=== PATIENT | male | born 1960 | race Hispanic/Latino ===

== ENCOUNTER → 2019-06-30 | Outpatient (CLI) | payer OTHER ==
[~2019-06-30] MED LIST: ASPI-1012 PO; CLOP75TA14 PO; SIMV20TA2 PO
== END | disposition home or self-care (01) ==
LOC: RAH 13:09
PROVIDERS: ATTEND Psychiatry & Neurology Neurology
DX: I63.50 Cerebral infarction due to unspecified occlusion or stenosis of unspecified cerebral artery (principal)
CPT/HCPCS: 70450

== ENCOUNTER → 2019-11-18 | Outpatient (CLI) | payer MEDICARE | END | disposition home or self-care (01) | LOC: RAH 12:25 | PROVIDERS: ATTEND Psychiatry & Neurology Neurology | DX: I25.10 Atherosclerotic heart disease of native coronary artery without angina pectoris (principal); M54.16 Radiculopathy, lumbar region; M25.78 Osteophyte, vertebrae | CPT/HCPCS: 72131 ==

== ENCOUNTER → 2020-11-07 | Outpatient (CLI) | payer OTHER ==
[~2020-11-07] VITALS: Ht 170.2 cm; Wt 96.6 kg
[~2020-11-07] MED LIST changes: +REGADENOSON 0.4 MG/5 ML PF SYG IVP SCH
== END | disposition home or self-care (01) ==
LOC: SHCH 08:12
PROVIDERS: ATTEND Internal Medicine Cardiovascular Disease
DX: R06.09 Other forms of dyspnea (principal); R00.1 Bradycardia, unspecified
CPT/HCPCS: 78452; 93017; 96374; A9500 ×2; J2785

== ENCOUNTER 2021-04-09 05:48 | Day surgery (SDC) | payer OTHER ==
[2021-04-04 10:46] LABS: BASOPHILS % (AUTO) 0.4 % (0.0-5.0); EOSINOPHILS % (AUTO) 2.8 % (0.0-8.0); HEMATOCRIT 52.6 % (42-54); LYMPHOCYTES % (AUTO) 23.7 % (21.0-51.0); MEAN CORPUSCULAR HEMOGLOBIN 30.2 pg (27.0-33.0); MEAN CORPUSCULAR HGB CONC 33.7 g/dL (32.0-36.0); MEAN CORPUSCULAR VOLUME 89.8 fL (79-99); MONOCYTES % (AUTO) 10.3 % (3.0-13.0); NEUTROPHILS % (AUTO) 62.5 % (40.0-77.0); PLATELET COUNT (AUTO) 228 K/uL (130-400); RED BLOOD CELL COUNT(AUTO) 5.86 MIL/uL (4.50-6.20); RED CELL DISTRIBUTION WIDTH 13.8 % (11.0-15.5)
[2021-04-04 11:02] LABS: CREATININE 1.1 mg/dL (0.5-1.5); POTASSIUM 4.5 mmol/L (3.5-5.1)
[2021-04-04 11:31] VITALS: BP 118/64
[2021-04-04 11:39] LABS: APPEARANCE,URINE Clear (CLEAR); BILIRUBIN,URINE Negative (NEGATIVE); COLOR,URINE Yellow (YELLOW); GLUCOSE, URINE (UA) Negative (NEGATIVE); KETONES,URINE Negative (NEGATIVE); LEUKOCYTE ESTERASE ,URINE Trace (NEGATIVE); NITRATE,URINE Negative (NEGATIVE); OCCULT BLOOD,URINE Negative (NEGATIVE); PROTEIN,URINE Negative (NEGATIVE)
[2021-04-04 11:52] LABS: INR 1.02 (0.85-1.15); PROTHROMBIN TIME 11.1 SEC (9.6-11.6)
[2021-04-04 11:53] LABS: PARTIAL THROMBOPLASTIN TIME 28.5 SEC (26.3-35.5)
[2021-04-04 12:01] LABS: BACTERIA,URINE Rare /HPF (None Seen); RBC,URINE 0-1 /HPF (0-1); SQUAMOUS EPITHELIAL CELL,UR Rare /HPF (0-2); WBC,URINE 0-1 /HPF (0-1)
[2021-04-09] VITALS (9 sets, daily range): BP systolic 100–147; BP diastolic 46–74
[~2021-04-09] VITALS: Ht 167.6 cm; Wt 93.3 kg
[~2021-04-09 05:48] MED LIST changes: +AEC81 PO; +AMLO-257 PO; -ASPI-1012 PO; +ATOR40TA71 PO; +LISI20TA24 PO; -REGADENOSON 0.4 MG/5 ML PF SYG IVP SCH; -SIMV20TA2 PO
[2021-04-09] MEDS ORDERED: 0.9%NACL 1000ML 1,000 ML IV ONE (06:23)
[2021-04-09] MEDS ORDERED: SODIUM BICARB 50MEQ 50ML VIAL 50 ML ONE (07:08)
[2021-04-09] MEDS ORDERED: NITROGLYCERIN 2 MG VIAL IV ONE (07:09)
[2021-04-09] MEDS ORDERED: MIDAZOLAM HCL 1 MG/ML 2ML VIAL ONE ×3 (07:09→08:16)
[2021-04-09] MEDS ORDERED: IOHEXOL 350 MG/ML 100ML INFUS..BTL IV ONE (07:09)
[2021-04-09] MEDS ORDERED: MEPERIDINE-PF 25 MG/ML SYG ONE ×2 (07:09→07:51)
[2021-04-09] MEDS ORDERED: NICARDIPINE 25MG INJ IV ONE (07:09)
[2021-04-09] MEDS ORDERED: IOHEXOL-350 50ML VIAL IV ONE (07:09)
[2021-04-09] MEDS ORDERED: LIDOCAINE HCL 400MG/20ML VIAL ONE (07:10)
[2021-04-09] MEDS ORDERED: HEPARIN 10,000 UNIT/10ML (1,000 UNIT/ML) VIAL ONE (07:15)
[2021-04-09] MEDS ORDERED: LIDOCAINE PF 100MG/5ML (2%) SYRINGE 5ML ONE (08:16)
[2021-04-09] MEDS ORDERED: DEXAMETHASONE SOD PHOSPHATE 10MG/ML 1ML VIAL ONE (08:16)
[2021-04-09] MEDS ORDERED: SUCCINYLCHOLINE CHLORIDE 20 MG/ML 10 ML VIAL ONE (08:16)
[2021-04-09] MEDS ORDERED: ONDANSETRON 4MG INJ ONE (08:16)
[2021-04-09] MEDS ORDERED: GLYCOPYRROLATE 1 MG/5 ML SYRINGE ONE (08:16)
[2021-04-09] MEDS ORDERED: PROPOFOL 10 MG/ML 20ML VIAL IV ONE (08:17)
[2021-04-09] MEDS ORDERED: FENTANYL CITRATE PF 50 MCG/1 ML 2ML VIAL ONE (08:17)
[2021-04-09] MEDS ORDERED: ROCURONIUM 10MG/1ML SYR 10 MG/ML ML ONE (08:17)
[2021-04-09] MEDS ORDERED: NEOSTIGMINE 5MG/5ML SYR IV ONE (08:17)
[2021-04-09] MEDS ORDERED: 0.9%NACL 1000ML 1,000 ML IV SCH (09:00)
[2021-04-09] MEDS ORDERED: DEXTROSE 50%-WATER 50 ML DISP.SYRIN IV PRN (09:00)
[2021-04-09] MEDS ORDERED: INSULIN HUMULIN R 100 UNIT/ML 3ML SQ SCH (11:30)
[2021-04-09] MEDS ORDERED: MELO7.5T12 PO (12:46)
== END 2021-04-09 14:18 | disposition home or self-care (01) ==
LOC: DAH 05:48
PROVIDERS: ATTEND Internal Medicine Cardiovascular Disease
DX: I25.119 Atherosclerotic heart disease of native coronary artery with unspecified angina pectoris (principal); I10 Essential (primary) hypertension; G47.33 Obstructive sleep apnea (adult) (pediatric); Z79.899 Other long term (current) drug therapy; Z79.01 Long term (current) use of anticoagulants; Z86.73 Personal history of transient ischemic attack (TIA), and cerebral infarction without residual deficits; Z82.49 Family history of ischemic heart disease and other diseases of the circulatory system; Z88.0 Allergy status to penicillin
CPT/HCPCS: 36415; 71045; 80048; 81001; 85025; 85610; 85730; 93005; 93458; A4215; A4216; A4221; A4222; A4223 ×3; A4606; A4663; C1760; C1769; C1894 ×3; J0330; J1100; J1644 ×2; J2001; J2175 ×2; J2250 ×2; J3490 ×4; J7030; Q9965; Q9967 ×2; 99156; 99157; J2405; J2704; J2710; J3010

== ENCOUNTER → 2022-08-21 | Outpatient (CLI) | payer OTHER ==
[~2022-08-21] MED LIST changes: +CLOP-31 PO; -CLOP75TA14 PO
== END | disposition home or self-care (01) ==
LOC: RAH 14:59
PROVIDERS: ATTEND Physical Medicine & Rehabilitation
DX: M47.816 Spondylosis without myelopathy or radiculopathy, lumbar region (principal); R11.0 Nausea; K59.00 Constipation, unspecified; I69.30 Unspecified sequelae of cerebral infarction; M21.371 Foot drop, right foot; R26.89 Other abnormalities of gait and mobility; M79.2 Neuralgia and neuritis, unspecified; R27.9 Unspecified lack of coordination; G95.20 Unspecified cord compression; M43.22 Fusion of spine, cervical region; I67.89 Other cerebrovascular disease
CPT/HCPCS: 72110

== ENCOUNTER → 2022-08-31 | Outpatient (CLI) | payer OTHER | END | disposition home or self-care (01) | LOC: RAH 09:30 | PROVIDERS: ATTEND Physical Medicine & Rehabilitation | DX: M51.37 Other intervertebral disc degeneration, lumbosacral region (principal); M48.07 Spinal stenosis, lumbosacral region; M51.26 Other intervertebral disc displacement, lumbar region; R11.0 Nausea; K59.00 Constipation, unspecified | CPT/HCPCS: 72148 ==